=== PATIENT | male | born 2000 | race Caucasian/White ===

== ENCOUNTER 2021-04-22 03:06 | Emergency (ER) | payer OTHER, SELFPAY ==
[2021-04-22 03:10] VITALS: BP 129/71; PULSE 83; RESP 16; TEMP 37.2; O2SAT 98; BMI 24.4
--- NOTE | 2021-04-22 04:10 | ED_ITS ---
HPI - Wound/Laceration General Chief Complaint: Wound/Laceration Stated Complaint: Tooth through upper lip Time Seen by Provider: 04/22/21 04:05 Source: patient Mode of arrival: ambulatory Limitations: no limitations History of Present Illness HPI narrative: Patient was playing rugby was elbowed into the mouth , la ceration on the upper lip tooth slightly loose, laceration on the inside of the upper lip no other injuries Related Data Allergies Allergy/AdvReac Type Severity Reaction Status Date / Time No Known Allergies Allergy Verified 04/22/21 04:13 Review of Systems Review of Systems: Yes all other systems are reviewed and are negative [facility] Past Medical History Medical History No known health problems Social History Social History Advance Directives: No Advance Directives Information Provided: Yes Physical Exam Vital Signs: Vital Signs: Last Vital Signs Temp 98.9 F 04/22/21 03:10 Pulse 83 04/22/21 03:10 Resp 16 04/22/21 03:10 BP 129/71 04/22/21 03:10 Pulse Ox 98 04/22/21 03:10 Body Mass Index 24.4 Const: General: comfortable and no acute distress HENMT: Mouth/tongue images: 1. Superficial laceration inside of left upper lip 2. 3 mm long puncture laceration Teeth image: 1. Slightly loose tooth 11. Gum line intact no swelling of the thumb Procedures Laceration Laceration 1: Site: lip Size (cm): 2 Description: linear Depth: simple, single layer Local Anesthetic: lidocaine 2% Amount of anesthesia used (mL): 1 Skin layer closed with: vicryl Size (cm): 5-0 Number of sutures: 3 Technique: simple, interrupted Discharge Plan Discharge Clinical Impression: Laceration Patient Disposition: Home, Self-Care Instructions: Laceration (ED) Additional Instructions: Local care as advised Sutures will dissolve of their own Do not eat or bite anything from left side Follow-up with dentist within a week for further evaluation
[2021-04-22] MEDS: Lidocaine HCl 2 % MPF 5 ML VIAL INFILTRATI (04:31)
[2021-04-22] MEDS: Ibuprofen 600 MG TABLET PO (05:08)
== END 2021-04-22 05:08 | disposition home or self-care (01) ==
PROVIDERS: Emergency Provider Internal Medicine
DX: S01.511A Laceration without foreign body of lip, initial encounter (principal); G44.309 Post-traumatic headache, unspecified, not intractable; Y29.XXXA Contact with blunt object, undetermined intent, initial encounter; Y93.9 Activity, unspecified; Y92.9 Unspecified place or not applicable; Y99.9 Unspecified external cause status
CPT/HCPCS: 12011; 99283; 99284